=== PATIENT | male | born 1995 | race Native Hawaiian/Other Pacific Islander ===

== ENCOUNTER 2019-02-27 20:14 | Emergency (ER) | payer OTHER ==
[~2019-02-27] VITALS: Ht 185.4 cm; Wt 84.1 kg
[2019-02-27] MEDS ORDERED: IBUP200C25 PO (20:21)
[2019-02-27] MEDS ORDERED: GNP10CAP PO (20:21)
[2019-02-27] MEDS ORDERED: IBUPROFEN 600 MG TAB PO ONE (20:45)
[2019-02-27 21:27] LABS: INFLUENZA A AMPLIFICATION NEGATIVE (NEGATIVE); INFLUENZA B AMPLIFICATION NEGATIVE (NEGATIVE)
[2019-02-27] MEDS ORDERED: ALBUTEROL 90 MCG/ACT 8GM HFA INHALER INH STA (21:33)
[2019-02-27] MEDS ORDERED: BENZ200C70 PO (21:36)
[2019-02-27] MEDS ORDERED: AFRI0.058 (21:36)
[2019-02-27 21:41] VITALS: BP 142/65
--- NOTE | 2019-02-28 09:21 | REP ---
REASON: Dyspnea. PRIORS: None. FINDINGS: The superior mediastinal structures are midline. The cardiac silhouette is unremarkable in size, shape, and position. The diaphragmatic surfaces of the lungs are regular, and the costophrenic angles are clear. The pulmonary brandt are clear. The imaged osseous structures are intact. IMPRESSION: There is no acute cardiopulmonary disease. Electronically Signed by Goldy Dodd DO 02/28/2019 09:26 A
== END 2019-02-27 21:52 | disposition home or self-care (01) ==
LOC: M ED 20:14
DX: J06.9 Acute upper respiratory infection, unspecified (principal); F17.210 Nicotine dependence, cigarettes, uncomplicated